=== PATIENT | female | born 1985 | race Caucasian/White ===

== ENCOUNTER 2022-12-04 07:00 | Outpatient (CLI) | payer MEDICAID | END 2022-12-04 23:59 | disposition home or self-care (01) | LOC: LAB.S 07:00 | PROVIDERS: ATTEND Emergency Medicine | DX: L03.113 Cellulitis of right upper limb (principal) | CPT/HCPCS: 87070; 87205 ==

== ENCOUNTER 2023-01-04 07:09 | Outpatient (CLI) | payer MEDICAID ==
[2023-01-04 14:21] LABS: HCT - HEMATOCRIT 40.9 % (37.0-47.0); HGB - HEMOGLOBIN 13.2 g/dL (12.0-16.0); MEAN CORPUSCULAR HEMOGLOBIN 30.3 pg (27.0-31.0); MEAN CORPUSCULAR HGB CONC 32.3 g/dL (32.0-36.0); MEAN CORPUSCULAR VOLUME 93.8 fL (81.0-99.0); MEAN PLATELET VOLUME 11.1 fL (7.9-10.8); RED BLOOD COUNT 4.36 10^6/uL (4.20-5.40); RED CELL DISTRIBUTION WIDTH 11.9 % (12.0-15.0); WHITE BLOOD COUNT 5.3 x10^3/uL (4.8-10.8)
[2023-01-04 14:53] LABS: % IRON SATURATION 18 % (20-50); ALBUMIN 4.1 g/dL (3.2-5.5); ALBUMIN/GLOBULIN RATIO 1.2 (1.0-2.2); ALKALINE PHOSPHATASE 38 IU/L (42-121); ALT ALANINE AMINOTRANSFERASE 18 IU/L (10-60); AST ASPARTATE AMINOTRANSFERASE 19 IU/L (10-42); BILIRUBIN,TOTAL 0.4 mg/dL (0.2-1.0); BUN - BLOOD UREA NITROGEN 15 mg/dL (6-20); CALCIUM 9.1 mg/dL (8.5-10.3); CARBON DIOXIDE - CO2 30 mmol/L (21-32); CHLORIDE 104 mmol/L (101-111); CHOL/HDL RATIO 2.6 (<4.4); CHOLESTEROL 163 mg/dL; CREATININE 0.8 mg/dL (0.4-1.0); GFR - MDRD 81 (>89); GLUCOSE 89 mg/dL (70-100); HDL CHOLESTEROL 63 mg/dL; IRON 60 ug/dL (28-170); POTASSIUM 4.2 mmol/L (3.5-5.0); SODIUM 138 mmol/L (135-145); TOTAL IRON BINDING CAPACITY 336 ug/dL (250-450); TOTAL PROTEIN 7.5 g/dL (6.7-8.2); TRANSFERRIN 240 mg/dL (192-382); TRIGLYCERIDES 29 mg/dL
[2023-01-04 15:05] LABS: THYROID STIMULATING HORMONE 3.01 uIU/mL (0.34-5.60)
[2023-01-04 15:10] LABS: FERRITIN 36.6 ng/mL (11.0-306.8)
[2023-01-04 15:11] LABS: PROLACTIN 14.42 ng/mL
[2023-01-04 15:32] LABS: FOLLICLE STIMULATING HORMONE 5.83 mIU/mL
[2023-01-04 15:33] LABS: LUTEINIZING HORMONE 15.25 mIU/mL
[2023-01-04 20:32] LABS: ESTIMATED AVERAGE GLUCOSE 91 mg/dL (70-100); HEMOGLOBIN A1c% 4.8 % (4.27-6.07)
== END 2023-01-04 07:10 | disposition home or self-care (01) ==
LOC: LAB.S 07:09
PROVIDERS: ATTEND Internal Medicine
DX: R53.83 Other fatigue (principal); N92.6 Irregular menstruation, unspecified; Z13.220 Encounter for screening for lipoid disorders
CPT/HCPCS: 36415; 80053; 80061; 82728; 83001; 83002; 83036; 83540; 83721; 84146; 84403; 84443; 84466; 85027